=== PATIENT | female | born 1945 | race Caucasian/White ===

== ENCOUNTER 2018-02-05 06:38 | Outpatient (CLI) | payer OTHER ==
[~2018-02-05] VITALS: Ht 162.6 cm; Wt 58.6 kg
[2018-02-05 07:00] LABS: BASOPHILS 0.7 % (0-2); EOSINOPHILS 3.1 % (0-7); HEMATOCRIT 46.7 % (36.0-48.0); HEMOGLOBIN 15.5 g/dL (12-16); IMMATURE GRANULOCYTES 0.7 % (0-5); LYMPHOCYTES 14.9 % (15-50); MCH 25.9 pg (26.0-34.0); MCHC 33.2 g/dL (31.0-37.0); MEAN PLATELET VOLUME 9.5 fL (7.4-10.4); MONOCYTES 10.4 % (2-11); NEUTROPHILS 70.2 % (40-80); PLATELET COUNT 839 10x3/uL (130-400); RBC 5.99 10x6/uL (4.00-5.40); RDW 15.7 % (11.5-14.5); WBC 9.1 10x3/uL (4.8-10.8)
[2018-02-05 07:17] LABS: APTT 31.5 SECONDS (22.8-39.4); INR 1.09 (0.85-1.17); PROTIME 13.7 SECONDS (11.6-15.0)
[2018-02-05 07:21] LABS: ANION GAP 9.2 mmol/L (8-16); CALCIUM 9.2 mg/dL (8.5-10.1); CARBON DIOXIDE 31.1 mmol/L (21.0-32.0); CREATININE - SERUM 0.9 mg/dL (0.6-1.3); POTASSIUM - SERUM 4.3 mmol/L (3.5-5.1)
[2018-02-05] MEDS ORDERED: SYNTHROID50 MCG PO (07:50)
[2018-02-05 08:05] VITALS: BP 127/74; Ht 162.6 cm; Wt 58.6 kg
== END 2018-02-05 11:35 | disposition home or self-care (01) ==
LOC: D.SP 06:38
PROVIDERS: Specialist
DX: D47.3 Essential (hemorrhagic) thrombocythemia (principal)